=== PATIENT | male | born 2000 | race Caucasian/White ===

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

== ENCOUNTER 2020-05-21 01:26 | Emergency (ER) | payer OTHER ==
[~2020-05-21 01:26] MED LIST: AMOXICILLIN500 MG PO; IBUPROFEN800 MG PO; NARCAN4 MG; NORCO 5-325 TA1 EACH PO; VOLTAREN **OUT50 MG PO
[2020-05-21 02:16] LABS: BASOPHIL 0.4 % (0-2); EOSINOPHIL 0.2 % (0-5); HCT 37.2 % (42.0-52.0); HGB 12.8 g/dl (13.2-18.0); LYMPHOCYTE 12.7 % (15-48); MCH 29.8 pg (25.0-31.0); MCHC 34.4 g/dL (32.0-36.0); MCV 86.7 fL (78.0-100.0); MONOCYTE 5.1 % (0-12); MPV 8.8 fL (6.0-9.5); NEUTROPHIL 81.4 % (41-80); NRBC 0; PLT 256 K/uL (150-400); RBC 4.29 M/uL (4.70-6.00); WBC 5.3 K/uL (4.0-10.5)
[2020-05-21 02:30] LABS: BILIRUBIN 1+ mg/dL (NEGATIVE); BLOOD TRACE-INTACT Ery/uL (NEGATIVE); CLARITY CLEAR (CLEAR); COLOR YELLOW (YELLOW); GLUCOSE (U) NORMAL (NORMAL); LEUKOCYTES NEGATIVE Leu/uL (NEGATIVE); NITRITE NEGATIVE (NEGATIVE); PROTEIN TRACE (LOW) mg/dL (NEGATIVE); SPECIFIC GRAVITY 1.025 (1.001-1.030); pH 6.5 (5.0-9.0)
[2020-05-21 02:32] LABS: ALBUMIN 3.9 g/dL (3.4-5.0); ALKALINE PHOSHATASE 112 U/L (46-116); ALT 25 U/L (16-63); AST 24 U/L (15-37); BILIRUBIN - TOTAL 0.5 mg/dL (0.2-1.0); BUN 14 mg/dL (7-18); BUN/CREAT RATIO (CALC) 14.9 RATIO; CHLORIDE 100 mmol/L (98-107); CO2 (BICARBONATE) 26 mmol/L (21-32); CREATININE 0.94 mg/dL (0.67-1.17); GLOBULIN (CALCULATION) 2.9 g/dL; GLUCOSE 94 mg/dL (74-106); POTASSIUM 4.2 mmol/L (3.5-5.1); TOTAL PROTEIN 6.8 g/dL (6.4-8.2)
[2020-05-21 02:36] LABS: AMPHETAMINES POSITIVE (NEGATIVE); BARBITURATES NEGATIVE (NEGATIVE); ECSTASY (MDMA) POSITIVE (NEGATIVE); MARIJUANA (THC) POSITIVE (NEGATIVE); METHADONE NEGATIVE (NEGATIVE); OPIATES POSITIVE (NEGATIVE)
[2020-05-21 02:37] LABS: OXYCODONE NEGATIVE (NEGATIVE)
[2020-05-21 02:39] LABS: BACTERIA TRACE; URINARY WBC RARE
== END 2020-05-21 03:17 ==
LOC: FER 01:26
PROVIDERS: Student in an Organized Health Care Education/Training Program
DX: Z02.89 Encounter for other administrative examinations (principal); F11.90 Opioid use, unspecified, uncomplicated; F15.90 Other stimulant use, unspecified, uncomplicated; F13.90 Sedative, hypnotic, or anxiolytic use, unspecified, uncomplicated; F12.90 Cannabis use, unspecified, uncomplicated; F17.210 Nicotine dependence, cigarettes, uncomplicated
CPT/HCPCS: 36415; 80048; 80076; 80305; 81001; 85025; 99283; G0480; J2310